=== PATIENT | male | born 1980 | race Caucasian/White ===

== ENCOUNTER 2024-12-15 03:26 | Day surgery (SDC) | payer BC, SELFPAY ==
[2024-12-08 14:57] VITALS: BMI 42.5
--- NOTE | 2024-12-08 15:24 | PC.NURSE ---
Report to the Outpatient Waiting Room, entrance under the green pavilion located off [facility], at time _10:00AM on date _12/15/24 . Planned Procedure Time: _12:00AM .? Time changes happen often and if your time is changed the preop area will call you the afternoon before. - You and your visitor will be asked to self-screen and do not enter if you have any COVID symptoms. Please call surgeon if you need to reschedule. - A mask is optional within the hospital at this time. Patients may have clear liquids (water, carbonated beverages, clear teas, apple juice) until 3 hours prior to surgery with a maximum of 20 ounces. - No food from midnight until time of surgery and no smoking, or chewing tobacco (or any form of nicotine). No chewing gum, candy or mints. Take only the following medications with a SIP of water on the morning of surgery: ___NONE DO NOT STOP ANY OF YOUR OTHER PRESCRIPTION MEDICATIONS PRIOR TO SURGERY EXCEPT THE FOLLOWING Hold all vitamins and supplements for 3 days per anesthesiologist. Medications to discontinue per physician NONE Date to take last dose____N/A Please no make-up, nail swedish, hairspray, perfume, deodorant, or body powder the day of surgery.? No jewelry (including any body piercings) or valuables the day of surgery, leave them at home.? Please take a shower or bath the night before, or the morning of, surgery with an antibacterial soap.? Wear comfortable, loose fitting clothing.? - Jewelry must be removed prior to entering the operating room.? Rings and piercings that are not removed may be cut off. - The hospital will not accept responsibility for valuables.? - Please leave all valuables, including medications, at home the day of surgery. If you are going home after surgery, a licensed route cdl driver must drive you home.? - NO public transportation without another adult if you receive anesthesia. - We recommend that an adult stay with you for 24 hours following discharge. - We also recommend that you do not drive, make important decision, drink alcoholic beverages, or take any drugs that were not prescribed by your health care provider for at least 24 hours after your discharge time. Follow any additional instructions given to you from your surgeon. Telephone instructions given to __MATT and asked if any additional questions and then verbalized understanding. Patient advised to call surgeon office or pre surgery nurse liaison [phone] if any additional questions.
[2024-12-15] VITALS (7 sets, daily range): BP systolic 124–167; BP diastolic 75–92; PULSE 70–92; RESP 14–20; TEMP 36.2–36.9; O2SAT 96–100
--- NOTE | ~2024-12-15 | XR_ITS ---
XR retrograde pyelo w/stent LT Ordering provider: Ned Gibson MD History: . LEFT SIDE STONE . Comparison: None. FINDINGS/impression: BOWEL: Nonobstructive bowel gas pattern. Left retrograde pyelography and double-J stent placement. Fluoroscopy time is 15.6 seconds. The radiation dose is 11.74 mGy. Reviewed, dictated and finalized at location A.
--- OUTSIDE RECORDS SUMMARY | 2024-12-15 03:29 | XMS_ITS | Clinical Summary ---
Author Organization [facility] Address [facility] [place] [address] Care Team Providers Care Medical Chief Technician Name Role Phone None, Provider MD Primary Care Provider Unavaila ble Allergies Active Allergy Reactions Criticality Noted Date Comments Apple Juice Anaphylaxis High 06/08/2019 Iodine Rash Low 06/08/2019 Prunus Persica Anaphylaxis High 06/08/2019 Medications cetirizine 10 MG tablet Take 10 mg by mouth daily. Active fluticasone propionate (FLONASE) 50 MCG/ACT nasal spray Active HYDROcodone-acetam inophen (NORCO) 5-325 MG tabletIndications: Acute Pain < 3 Day Supply Take 1 tablet by mouth every 6 (six) hours as needed. Indications: Acute Pain < 3 Day Supply Do not exceed 4g of acetaminophen in a day. 10 tablet 12/02/19 25 Active ondansetron (ZOFRAN-ODT) 4 MG disintegrating tablet Take 1 tablet (4 mg total) by mouth every 8 (eight) hours as needed. 10 tablet 12/02/19 25 Active tamsulosin (FLOMAX) 0.4 MG Cap Take 1 capsule (0.4 mg total) by mouth daily. 10 capsule 12/02/19 25 Active Active Problems No known active problems Encounters Date Type Department Care Team Description 12/01/2024 4:28 PM CDT - 12/01/2024 7:52 PM CDT Emergency [facility] [place] [address] [place] [address] Fela Montenegro PA Flank Pain Discharge Disposition: Home or Self Care (Routine Discharge) 12/01/2024 Travel from Last 3 Months Family History Medical History Relation Comments Diabetes Father Hypertension Father Cancer Mother Breast Relation Status Comments Father Mother Social History Tobacco Use Types Packs/Day Years Used Date Smoking Tobacco: Never Passive Smoke Exposure: Never Smokeless Tobacco: Never Tobacco Cessation:Counseling Given: Not Answered Alcohol Use Standard Drinks/Week Comments Yes 0 (1 standard drink = 0.6 oz pur e alcohol) rare use AUDIT-C Answer Date Recorded Frequency of Alcohol Consumption Never 06/08/2019 Average Number of Drinks Not on file 019 Frequency of Binge Drinking Not on file 03/2019 Sex and Gender Information Value Date Recorded Sex Assigned at Not on file Legal Sex Male 5:13 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 Gender Identity Not on file Sexual Orientation Not on file Last Filed Vital Signs Vital Sign Reading Time Taken Comments Blood Pressure 149/91 12/01/2024 7:36 PM CDT Pulse 75 12/01/2024 7:36 PM CDT Temperature 36.9 C (98.5 F) 12/01/2024 4:13 PM CDT Respiratory Rate 18 12/01/2024 7:36 PM CDT Oxygen Saturation 97% 12/01/2024 7:36 PM CDT Inhaled Oxygen Concentration - - Weight 131.5 kg (290 lb) 12/01/2024 4:13 PM CDT Height 172.7 cm (5' 8) 12/01/2024 4:13 PM CDT Body Mass Index 44.09 12/01/2024 4:13 PM CDT Plan of Treatment Health Maintenance Due Date Last Done Comments Colorectal Cancer Screening Colonoscopy (10 Years) 1978 Annual Physical 1981 Hepatitis C 1996 DTaP, Tdap and Td Vaccines ( 1 - Tdap) 1997 Hepatitis B Vaccines (1 of 3 - 19+ 3-dose series) 1997 COVID-19 Vaccine (2023-2 5 season) 2024 Meningococcal B Vaccine Aged Out No l onger eligible based on patient's age to complete this topic Meningococcal Vaccine Aged Out No lorena pricila eligible based on patient's age to complete this topic Pneumococcal Vaccine: Pediat rics (0 to 5 Years) and At-Risk Patients (6 to 49 Years) Aged Out No longer eligible b ased on patient's age to complete this topic RSV Immunizations Under 20 Months Aged Out No longer eligible based on patient's age to complete this topic Procedures Procedure Name Priority Date/Time Associated Diagnosis Comments CT ABD+PEL WO CON STAT 12/01/2024 5:3 4 PM CDT HC URINALYSIS AUTO W/O MICRO STAT 12/01/2024 4:51 PM CDT URINE BACTERIA CULTURE Routine 4:47 PM CDT LIPASE STAT 12/01/2024 4:47 PM CDT COMPREHENSIVE METABOLIC PANEL STAT 12/01/2024 4:47 PM CDT CBC W/DIFF AUTOMATED STAT 12/01/2024 4:47 PM CDT from Last 3 Months Results * CT ABD+PEL WO CON (12/01/2024 5:34 PM CDT) Anatomical Region Laterality Modality Abdomen Computed Tomogra phy 12/01/2024 6:29 PM CDT Impressions 12/01/2024 6:35 PM CDT IMPRESSION: 1. There is a 7 mm obstructing distal left ureteric stone resulting in mild left hydronephrosis. 2. No CT evidence of bowel obstruction or acute appendicitis. 3. Status post cholecystectomy. Ordered By: FELA MONTENEGRO Interpreted By: Pedro Salgado MD, 12/01/2024 6:29 PM Narrative 12/01/2024 6:35 PM [address]T [address] [address] PROCEDURE: CT ABD+PEL WO CON HISTORY: Left lower quadrant pain. TECHNIQUE: Helical CT of the abdomen and pelvis was performed without intravenous contrast. A dose lowering technique was used for this procedure, which may include, but is not limited to, dose reduction technique, automated exposure control, the use of iterative reconstruction, and ALARA (As Low As Reasonably Achievable) / Image Gently techniques. COMPARISON: None. FINDINGS CT ABDOMEN/PELVIS: Lower thorax: There is subsegmental atelectasis in the lower lobes. The heart is normal in size. Liver: The liver is normal in size. No intrahepatic mass is seen on this non- contrast exam. There is a 2.3 cm right hepatic lobe cyst Biliary tree: The patient is post cholecystectomy. There is no biliary ductal dilatation. Spleen: The spleen is normal in size. Pancreas: The pancreas is normal in size. There are no pancreatic calcifications. The pancreatic duct is not dilated. Adrenal glands: The adrenal glands are normal in size and shape. Kidneys: There is a 7 mm distal left ureteric stone resulting in mild left hydronephrosis. No right hydronephrosis or right renal stones.. Lymph nodes: Abdomen: There is no abdominal adenopathy. Pelvis: There is no pelvic adenopathy. Vasculature: The aorta is normal caliber. Peritoneum/mesentery/omentum: There is no free fluid or free air. GI tract: There is no bowel obstruction. The appendix is normal. There is no abnormal bowel wall thickening to suggest acute inflammation. Pelvic urogenital structures:The bladder is grossly unremarkable. The prostate is present. Body wall: There are degenerative changes in the spine. No aggressive osseous lesions identified. Small fat-containing umbilical hernia. Limitations: Evaluation of the solid parenchymal organs and vasculature is limited due to lack of intravenous contrast. Minimal bilateral hip degenerative changes. Carter: (S/I) = series number / image number Procedure Note Pedro Salgado MD - 12/01/[address] [address] PROCEDURE: CT ABD+PEL WO CON HISTORY: Left lower quadrant pain. TECHNIQUE: Helical CT of the abdomen and pelvis was performed withoutintravenous contrast. A dose lowering technique was used for this procedure, which may include,but is not limited to, dose reduction technique, automated exposurecontrol, the use of iterative reconstruction, and ALARA (As Low AsReasonably Achievable) / Image Gently techniques. COMPARISON: None. FINDINGS CT ABDOMEN/PELVIS: Lower thorax: There is subsegmental atelectasis in the lower lobes. Theheart is normal in size. Liver: The liver is normal in size. No intrahepatic mass is seen on thisnon- contrast exam. There is a 2.3 cm right hepatic lobe cyst Biliary tree: The patient is post cholecystectomy. There is no biliaryductal dilatation. Spleen: The spleen is normal in size. Pancreas: The pancreas is normal in size. There are no pancreaticcalcifications. The pancreatic duct is not dilated. Adrenal glands: The adrenal glands are normal in size and shape. Kidneys: There is a 7 mm distal left ureteric stone resulting in mild lefthydronephrosis. No right hydronephrosis or right renal stones.. Lymph nodes: Abdomen: There is no abdominal adenopathy. Pelvis: There is no pelvic adenopathy. Vasculature: The aorta is normal caliber. Peritoneum/mesentery/omentum: There is no free fluid or free air. GI tract: There is no bowel obstruction. The appendix is normal. There isno abnormal bowel wall thickening to suggest acute inflammation. Pelvic urogenital structures:The bladder is grossly unremarkable. Theprostate is present. Body wall: There are degenerative changes in the spine. No aggressiveosseous lesions identified. Small fat-containing umbilical hernia. Limitations: Evaluation of the solid parenchymal organs and vasculature islimited due to lack of intravenous contrast. Minimal bilateral hipdegenerative changes. Carter: (S/I) = series number / image number IMPRESSION: 1. There is a 7 mm obstructing distal left ureteric stone resulting inmild left hydronephrosis. 2. No CT evidence of bowel obstruction or acute appendicitis. 3. Status post cholecystectomy. Ordered By: FELA MONTENEGRO Interpreted By: Pedro Salgado MD, 12/01/2024 6:29 PM Fela Montenegro SD CT Final Result * (ABNORMAL) URINALYSIS (12/01/2024 4:51 PM CDT) SPECIMEN TYPE URINE CLEAN CATCH 12/01/2024 4:46 PM CDT [facility] COLOR (U) YELLOW 12/01/2024 5:37 PM CDT [facility] TRANSPARENCY TURBID 12/01/2024 5:37 PM CDT [facility] SPECIFIC GRAVITY (U) 1.029 1.001 - 1.030 12/01/2024 5:37 PM CDT [facility] U PH 5.5 5.0 - 9.0 12/01/2024 5:37 PM CDT [facility] LEUKOCYTES (U) NEGATIVE NEGATIVE 12/01/2024 5:37 PM CDT [facility] NITRITES NEGATIVE NEGATIVE 12/01/2024 5:37 PM CDT [facility] PROTEIN RANDOM (U) 70(H) <30 MG/DL 12/01/2024 5:37 PM CDT [facility] GLUCOSE (U) NORMAL NORMAL MG/DL 12/01/2024 5:37 PM T [facility] KETONES MG/DL (U) NEGATIVE NEGATIVE MG/DL 12/01/2024 5:37 PM CDT [facility] UROBILINOGEN NORMAL NORMAL MG/DL 12/01/2024 5:37 PM CDT [facility] BILIRUBIN (U) NEGATIVE NEGATIVE MG/DL 12/01/2024 5:37 PM CDT [facility] BLOOD (U) 3+(A) NEGATIVE 12/01/2024 5:37 PM CDT [facility] MUCUS MODERATE /LPF 12/01/2024 5:37 PM CDT [facility] WBC/HPF 19(H) <6 /HPF 12/01/2024 5:37 PM CDT [facility] RBC/HPF >100(H) <6 /HPF 12/01/2024 5:37 PM CDT [facility] BUDDING YEAST MANY(A) NONE /HPF 12/01/2024 5:37 PM CDT [facility] SPERM (U) SPERMATOZOA PRESENT 12/01/2024 5:37 PM CDT [facility] URINE SPECIMEN OBTAINED BY CLEAN CATCH PROCEDURE / Unknown 12/01/2024 4:51 PM CDT us Fela BUTCHER URINE ORDERABLES Final Result [facility] [address] [place] [address], [place] [phone] * URINE BACTERIA CULTURE (12/01/2024 4:47 PM CDT) SPEC DESCRIPTION URINE CLEAN CATCH 12/01/2024 9:09 PM CDT [facility] SPECIAL REQUESTS NO SPECIAL REQUEST 12/01/2024 9:09 PM CDT [facility] CULTURE RESULT NO GROWTH 2 DAYS 12/04/2024 9:12 AM CDT [facility] URINE SPECIMEN OBTAINED BY CLEAN CATCH PROCEDURE / Unknown 12/01/2024 4:47 PM CDT 12/01/2024 9:32 PM CDT Fela BUTCHER MICROBIOLOGY - GENERAL ORDERA BLES Final Result [facility] [address] [place] [address], [place] [phone] * (ABNORMAL) COMPREHENSIVE METABOLIC PANEL (12/01/2024 4:47 PM CDT) GLUCOSE 96 70 - 99 MG/DL 12/01/2024 5:13 PM CDT [facility] BUN 12 7 - 18 MG/DL 12/01/2024 5:13 PM CDT [facility] CREATININE S/P/B 1.34(H) 0.7 - 1.3 MG/DL 12/01/2024 5:13 PM CDT [facility] SODIUM S/P/B 139 136 - 145 MMOL/L 12/01/2024 5:13 PM CDT [facility] POTASSIUM S/P/B 3.5 3.5 - 5.1 MMOL/L 12/01/2024 5:13 PM CDT [facility] CHLORIDE S/P/B 108 97 - 115 MMOL/L 12/01/2024 5:13 PM CDT [facility] CO2 23.6 21 - 32 MMOL/L 12/01/2024 5:13 PM CDT [facility] CALCIUM S/P/B 8.9 8.5 - 10.1 MG/DL 12/01/2024 5:13 PM CDT [facility] BILIRUBIN TOTAL S/P/B 0.5 0.2 - 1.2 MG/DL 12/01/2024 5:13 PM CDT [facility] Comment: THIS ASSAY IS NOT RECOMMENDED FOR PATIENTS UNDERGOING TREATMENT WITH ELTROMBOPAG DUE TO THE POTENTIAL FOR FALSELY ELEVATED RESULTS. TOTAL PROTEIN S/P/B 8.1 6.4 - 8.2 G/DL 12/01/2024 5:13 PM CDT [facility] ALBUMIN S/P/B 4.0 3.4 - 5.0 G/DL 12/01/2024 5:13 PM CDT [facility] AST 27 15 - 37 U/L 12/01/2024 5:13 PM CDT [facility] ALT 44 16 - 60 U/L 12/01/2024 5:13 PM CDT [facility] ALKALINE PHOSPHATASE S/P/B 122 50 - 136 U/L 12/01/2024 5:13 PM CDT [facility] ANION GAP 7.4 2 - 10 MMOL/L 12/01/2024 5:13 PM CDT [facility] BUN CREATININE RATIO 9.0 6 - 26 12/01/2024 5:13 PM CDT [facility] A/G RATIO 1.0 1.0 - 2.0 RATIO 12/01/2024 5:13 PM CDT [facility] GFR ESTIMATE 66(L) >90 ML/MIN/1.7 3 M2 12/01/2024 5:13 PM CDT [facility] Comment: NOTE: eGFR is not calculated for patients <18 years of age or gender unknown. This is an estimated GFR calculation using the new CKD EPI creatinine equation without race and so does not require a correction factor for race. This estimated GFR should not be used for calculating drug doses. 12/01/2024 4:47 PM CDT Fela BUTCHER LABORATORY Final Result [facility] [address] [place] [address], * CBC W/DIFF AUTOMATED (12/01/2024 4:47 PM CDT) WBC 8.89 4.5 - 11.0 x10'3/uL 12/01/2024 5:00 PM CDT [facility] RBC 5.42 4.70 - 6.10 x10'6/uL 12/01/2024 5:00 PM CDT [facility] HGB 15.9 14.0 - 18.0 G/DL 12/01/2024 5:00 PM CDT [facility] HCT 45.4 43.0 - 54.0 % 12/01/2024 5:00 PM CDT [facility] MCV 83.8 80.0 - 94.0 FL 12/01/2024 5:00 PM CDT [facility] MCH 29.3 27.0 - 31.0 PG 12/01/2024 5:00 PM CDT [facility] MCHC 35.0 32.0 - 36.0 G/DL 12/01/2024 5:00 PM CDT [facility] RDW 12.8 11.5 - 14.5 % 12/01/2024 5:00 PM CDT [facility] PLT 237 130 - 400 x10'3/uL 12/01/2024 5:00 PM CDT [facility] MPV 9.3 9.3 - 12.2 FL 12/01/2024 5:00 PM CDT [facility] DIFFERENTIAL TYPE AUTOMATED DIFFERENTIAL 12/01/2024 5:00 PM CDT [facility] NEUTROPHILS % 53.9 % 12/01/2024 5:00 PM CDT [facility] LYMPHOCYTES % 32.5 % 12/01/2024 5:00 PM CDT [facility] MONOCYTES % 6.9 % 12/01/2024 5:00 PM CDT [facility] EOSINOPHILS 5.3 % 12/01/2024 5:00 PM CDT [facility] BASOPHILS 0.8 % 12/01/2024 5:00 PM CDT [facility] IMMATURE GRANS % 0.6 % 12/02/19 5:00 PM CDT [facility] ABS. NEUTROPHILS 4.80 1.80 - 7.70 x10'3/uL 12/01/2024 5:00 PM CDT [facility] ABS. LYMPHOCYTES 2.89 1.00 - 4.80 x10'3/uL 12/01/2024 5:00 PM CDT [facility] ABS. MONOCYTES 0.61 0.30 - 0.82 x10'3/uL 12/01/2024 5:00 PM CDT [facility] ABS. EOSINOPHILS 0.47 0.04 - 0.54 x10'3/uL 12/01/2024 5:00 PM CDT [facility] ABS. BASOPHILS 0.07 0.01 - 0.08 x10'3/uL 12/01/2024 5:00 PM CDT [facility] ABS. IMMATURE GRANULOCYTES 0.05 0.00 - 0.49 x10'3/uL 12/01/2024 5:00 PM CDT [facility] 12/01/2024 4:47 PM CDT Fela BUTCHER LABORATORY Final Result [facility] [address] [place] [address], [place] [phone] * LIPASE (12/01/2024 4:47 PM CDT) LIPASE 36 13 - 75 UNITS/L 12/01/2024 5:13 PM CDT [facility] 12/01/2024 4:47 PM CDT Fela BUTCHER LABORATORY Final Result [facility] [address] [place] [address], [place] [phone] from Last 3 Months Insurance [facility] Care Teams Medical Chief Technician Relationship Specialty Start Date End Date None, Provider, PCP - General 06/08/19
--- OUTSIDE RECORDS SUMMARY | 2024-12-15 03:29 | XMS_ITS | Clinical Summary ---
Author Organization [facility] Address [address] [place] [address] Care Team Providers Care Construction Management Instructor Name Role Phone Asher Faria MD Primary Care Provider [phone] Allergies Active Allergy Reactions Criticality Noted Date Comments Iodinated Contrast Media Rash Medium 04/06/2020 Medications cetirizine (ZyrTEC) 10 mg tablet Take 10 mg by mouth daily Active Active Problems No known active problems Surgical History Surgery Date Site/Laterality Comments CHOLECYSTECTOMY Family History Medical History Relation Name Comments Diabetes Father Heart disease Father Hypertension Father Breast cancer Mother Relation Name Status Comments Father Mother Alive Social History Tobacco Use Types Packs/Day Years Used Date Smoking Tobacco: Never Alcohol Use Standard Drinks/Week Comments Yes 0 (1 standard drink = 0.6 oz pur e alcohol) Personal Safety Answer Date Recorded Getting School Help Needed Not on file 09/13 Sex and Gender Information Value Date Recorded Sex Assigned at Not on file Legal Sex Male 12:59 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 Gender Identity Not on file Sexual Orientation Not on file Obstetrics History Last Filed Vital Signs Vital Sign Reading Time Taken Comments Blood Pressure 140/90 04/06/2020 3:31 PM CDT Pulse 96 04/06/2020 3:31 PM CDT Temperature 36.6 C (97.8 F) 04/06/2020 3:31 PM CDT Respiratory Rate 16 04/06/2020 3:31 PM CDT Oxygen Saturation 97% 04/06/2020 3:31 PM CDT Inhaled Oxygen Concentration - - Weight 119.3 kg (263 lb) 04/06/2020 3:31 PM CDT Height 175.3 cm (5' 9) 04/06/2020 3:31 PM CDT Body Mass Index 38.84 04/06/2020 3:31 PM CDT Plan of Treatment Not on file Insurance [facility] Care Teams Construction Management Instructor Relationship Specialty Start Date End Date Asher Faria MD PCP - General Family Medicine 04/04/20
--- OUTSIDE RECORDS SUMMARY | 2024-12-15 03:29 | XMS_ITS | Referral Summary ---
Author Organization [facility] Address [address] [place] [address] Care Team Providers Care Shore Hand Dredge Or Barge Name Role Phone Asher Faria MD Primary Care Provider [phone] Allergies Active Allergy Reactions Criticality Noted Date Comments Iodinated Contrast Media Rash Medium 04/06/2020 Medications cetirizine (ZyrTEC) 10 mg tablet Take 10 mg by mouth daily Active Active Problems No known active problems Social History Tobacco Use Types Packs/Day Years Used Date Smoking Tobacco: Never Alcohol Use Standard Drinks/Week Comments Yes 0 (1 standard drink = 0.6 oz pur e alcohol) Personal Safety Answer Date Recorded Getting School Help Needed Not on file 09/13 Sex and Gender Information Value Date Recorded Sex Assigned at Not on file Legal Sex Male 12:59 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
--- OUTSIDE RECORDS SUMMARY | 2024-12-15 03:29 | XMS_ITS | Continuity of Care Document ---
Author Organization [facility] Address [address] [place] [address] Phone Care Team Providers Care Solar Lab Technician Name Role Phone Robert Alonso MD Unavailable Unavailable Medications Medication Instructions Dosage Effective Dates (start - stop) Status Comments FEXOFENADINE HCL 180 MG TABLET 1 QD-daily - Active Advance Directives Directive Yes / No Effective Date File Name No Information Encounters Encounter Description Practice Location Reason(s) For Visit Diagnoses Date Provider Providers Copied on Encounter [facility], [address], [place], [place], [id number] , [place] tel: [phone] [facility] Allergic rhinitis due to other allergen 3 Gavin Jones. [address] [place] [address], [id number] , . tel: [phone] Referring Provider: Robert Alonso, [address] [place] [address], [id number] . tel:[phone] [facility], [address], [place], [place], [id number] , tel: [phone] [facility] ALLERGIC RHINITIS NECDermatitis due to food taken internally 2 Gavin Jones. [address], [id number] , . tel: [phone] Referring Provider: Robert Alonso, [address] [place] [address], [id number] . tel:[phone] [facility], [address], [place], [place], [id number] , tel: [phone] [facility] No Information 1 Gavin Jones. [address], [id number] , . tel: [phone] [facility], [address], [place], [place], [id number] , tel: [phone] [facility] RHINITIS DUE TO POLLENALLERGIC RHINITIS NEC 0201 0 Gavin Jones. [address], [id number] , . tel: [phone] [facility], [address], [place], [place], [id number] , tel: [phone] [facility] AC ATOPIC CONJUNCTIVITISANPHY LCT SHK FOOD NOS 8 Gavin Jones. [address], [id number] , . 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 Percentile Wt./Tarun. Percentile BMI percentile Pulse Ox Inhaled Ox 5:21 PM 68.50 in 260.00 lbs 38.9 5 kg/m eter (2) 102 /min 143/82 mm[Hg] Chief Complaint And Reason For Visit No Information Reason For Referral Reason For Referral No Information History Of Present Illness Encounter Date Complaint History Of Prese nt Illness No Information Functional Status Date Functional Assessmen t No Information Instructions Date Instruction Additional Infor mation No Information Assessments Type Assessment Date No Information Patient Care Teams Name Effective Dates (start - stop) Status Members No Information
--- NOTE | 2024-12-15 07:10 | WPDHPUPDATE1 ---
History and Physical Update Update Date/Time: 12/15/24 07:10 History and Physical has been reviewed, including an updated exam of the patient. There are NO changes in the patient's condition. Risks, benefits, and alternatives have been discussed and questions answered. Patient agrees to proceed with procedure.
[2024-12-15] MEDS: LACTATED RINGERS 1,000 ML 30 ML IV CONT (08:30)
--- NOTE | 2024-12-15 08:59 | P.PNAN_ITS ---
Anes - Initial Pre Proc Eval Procedure: Operation Date: 12/15/24 10:00 Proposed Procedures p Cystoscopy, Left Ureteroscopy, Possible Left Retrograde Pyelogram, Possible Left Stone Extraction, Possible Left Stent Placement, Possible Holmium Laser - Ned Gibson MD Date/Time: 12/15/24 08:59 Surgeon: Ned Gibson MD Pre Op Diagnosis: left ureteral stone Patient Data Age: 44 Gender: M Height: 1.74 m Weight: 128.56 kg Allergies Allergy/AdvReac Type Severity Reaction Status Date / Time Iodinated Contrast Media Allergy Mild Rash Verified 12/15/24 08:52 apple Allergy Unknown Rash Verified 12/15/24 08:52 peach Allergy Unknown Rash Verified 12/15/24 08:52 Home Medications ?Medication ?Instructions ?Recorded ?Confirmed ?Type cetirizine 10 mg tablet (24Hour 10 mg PO DAILY PRN allergy symptoms 12/08/24 12/08/24 History Allergy) fluticasone propionate 50 2 spray intranasal DAILY PRN 12/08/24 12/08/24 History mcg/actuation nasal allergy symptoms spray,suspension (24 Hour Allergy Relief) Patient hx anesthesia problems: none Family hx anesthesia problems: none Results Review: All pre-operative results and documents have been reviewed as part of the pre- operative evaluation. [facility] Social History Social History Smoking status: Never smoker Alcohol intake: never Substance use: former Substance use type: does not use and marijuana Last use: 2022 Living arrangements: with family Spiritual care concerns: No Anes - Eval Final PreProcedure Day of Procedure 12/15/24 08:59 Patient weight: morbidly obese Heart: regular rate and rhythm Lungs: clear to auscultation Airway: Mallampati scale class II Neurological: alert and oriented Last oral intake: >/= 8 hours ASA classification: III Emergent: no Anesthetic plan: proceed Anesthesia type and monitoring: general LMA and standard monitoring Results Review: All pre-operative results and documents have been reviewed as part of the pre- operative evaluation. Informed Consent: The patient's anesthetic plan and its attendant risks and benefits were discussed with the patient/family/POA. Questions were solicited and answers provided to the satisfaction of the patient/family/POA.
[2024-12-15] MEDS: ceFAZolin 3 GM/D5W 100 ML 100 ML IVPB (09:13)
[2024-12-15] MEDS: LIDOCAINE 2% GEL UROJET 10 ML PKG MUCOUS MEM (09:29)
--- NOTE | 2024-12-15 09:47 | S_PTH ---
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
--- NOTE | 2024-12-15 09:54 | P.OP_ITS ---
Procedure Note - Detailed Date of Procedure 12/15/24 Pre-op Diagnosis left ureteral stone Post-op Diagnosis Same Procedure Performed Cystoscopy, left retrograde, left ureteroscopy with laser, stone extraction, left stent placement 4.8 Bol[place]ian contour Surgeon Ned Gibson MD Anesthesia General Description of Procedure Patient was taken to the operative suite correctly identified. Once anesthesia was obtained was placed in dorsal lithotomy position and prepped and draped usual sterile fashion. Twenty-two Bolivian scope was inserted the bladder. There were no tumors noted. Left ureteral orifice was cannulated with a guidewire. I dilated with an 8/10 dilator. Rigid ureteral scope was inserted. The stone was visualized. Using a holmium laser fiber a fragment the stone and retrieved the pieces and sent for analysis. Reinspection revealed no residual stones. Pyelogram was then performed confirm placement of the stent. 4.8 Bolivian contour stent was then placed with the proximal end coiled in the renal pelvis and the distal in the bladder. Bladder was drained. 2% viscous lidocaine was inserted into the urethra and patient is taken recovery stable condition. He will follow-up in a week's time for stent removal. This completes dictation. Please send a copy of op note to my office. Estimated Blood Loss 0 Drains Yes Packing No Pathology Yes Complications No immediate complications Condition Stable Disposition PACU
== END 2024-12-15 11:29 | disposition home or self-care (01) ==
PROVIDERS: Visit Provider Urology
PROC: (CPT 52352; principal; 2024-12-15 10:00)
DX: N20.1 Calculus of ureter (principal); E66.01 Morbid (severe) obesity due to excess calories; Z68.41 Body mass index [BMI] 40.0-44.9, adult
CPT/HCPCS: 52356; 74420; 82365; 88300; C1769; C2617; J0690; J1100; J2250; J2405; J2704; J3010; J7120; Q9966